=== PATIENT | male | born 1995 | race American Indian/Alaskan Native ===

== ENCOUNTER 2017-04-07 13:08 | Emergency (ER) | payer SELFPAY ==
[~2017-04-07] VITALS: Ht 185.4 cm; Wt 97.5 kg
== END 2017-04-07 13:49 | disposition home or self-care (01) ==
LOC: ED 13:08
DX: S61.213A Laceration without foreign body of left middle finger without damage to nail, initial encounter (principal); W45.0XXA Nail entering through skin, initial encounter

== ENCOUNTER 2017-11-11 23:05 | Emergency (ER) | payer OTHER ==
[~2017-11-11] VITALS: Ht 185.4 cm; Wt 97.5 kg
== END 2017-11-12 03:25 | disposition home or self-care (01) ==
LOC: ED 23:05
DX: S06.0X9A Concussion with loss of consciousness of unspecified duration, initial encounter (principal); S01.21XA Laceration without foreign body of nose, initial encounter; S01.81XA Laceration without foreign body of other part of head, initial encounter; Y04.8XXA Assault by other bodily force, initial encounter
CPT/HCPCS: 70450; 70486; 72125; 99285

== ENCOUNTER 2022-03-05 07:36 | Emergency (ER) | payer SELFPAY ==
[~2022-03-05] VITALS: Ht 185.4 cm; Wt 106.6 kg
== END 2022-03-05 08:20 | disposition home or self-care (01) ==
LOC: ED 07:36
DX: S93.401A Sprain of unspecified ligament of right ankle, initial encounter (principal); Z88.0 Allergy status to penicillin; X50.1XXA Overexertion from prolonged static or awkward postures, initial encounter
CPT/HCPCS: 73610; 99283-25